=== PATIENT | female | born 1970 | race Caucasian/White ===

== ENCOUNTER 2018-05-22 12:24 | Emergency (ER) | payer MEDICARE, SELFPAY ==
[2018-05-22 12:25] VITALS: BP 145/88; PULSE 93; RESP 16; TEMP 36.4; O2SAT 100; BMI 31.8
--- NOTE | 2018-05-22 12:44 | ED.DCSUM_ITS ---
- ER Visit Summary Date of Service: 05/22/18 Chief Complaint: Back pain [] History of Present Illness: The patient is a 47 F [presents the emergency department with complaint of back pain that has been chronic for years however exacerbated over the last 2-3 days. Patient states that she used to live in the area and then moved down in [place] but is now moving back this weekend. Patient believes that from all the driving around and sitting in the car it has exacerbated her chronic back pain. Patient denies any trauma. Patient denies urinary symptoms. Patient denies fever or IV drug use. Patient used to be in pain management with Dr. Chavis and would like to get back into see him. Patient was not seeing pain management in [facility]. Patient tells me this is the same pain she always has had there is nothing different about it. Patient denies any radiation down the legs or weakness in extremities. She denies any change in bowel or bladder function.] Physical Examination: [HEENT-PERRLA, EOMI. Cranial nerves II through XII grossly intact. TMs clear. Mucous membranes moist. No adenopathy. Cardiovascular-regular rate and rhythm without murmur or ectopy Lungs-clear to auscultation, chest wall stable without crepitus or subcu emphysema Abdomen-normoactive bowel sounds, soft, nontender, no rebound or rigidity, no peritoneal signs. Back exam-patient has diffuse tenderness over the lumbar spine and lumbar paraspinal musculature. There is no erythema or warmth. There is no crepitus. Patient has negative straight leg raises. Deep tendon reflexes are plus 2 out of 4 bilaterally at the patella and Achilles. Patient has normal L5 extension. Patient has normal sensation to light touch Extremities-intact ?4, normal range of motion, normal pulses, atraumatic] Test Results: [None indicated] Emergency Department Course and Treatment: Patient was given a dose of Dilaudid 1 mg IM as well as a fentanyl patch 25 mcg. I did perform an oars report which does not show any narcotic prescriptions in 2018 however she did have prescriptions in [address]avis[] Treatment Plan: Patient will be given a prescription for 12 [place] [] Disposition: [Discharged home in stable condition. Patient will be referred for follow-up with Dr. Chavis] Impression: [Acute exacerbation of chronic back pain] This note was generated with Dragon dictation software. It may contain incorrect words, spelling, and punctuation that were not noted in review of the chart prior to signing ED Disposition - Plan for ED Patient: Chief Complaint: Back Referrals: Martin Lisa [Primary Care Provider] -
--- NOTE | 2018-05-22 12:46 | DCINST.ED_ITS ---
ED Disposition - Plan for ED Patient: Chief Complaint: Back Instructions: ED Neck Back Pain General Prescriptions: Hydrocodone/Acetaminophen [[place] 5-325 Tablet] 1 - 2 ea PO 4X/DAY PRN PRN 3 Days #12 tab PRN Reason: Pain Cyclobenzaprine [Flexeril] 10 mg PO TID PRN #20 tab PRN Reason: Muscle Spasm Referrals: Martin Lisa [Primary Care Provider] - Ricki Chavis MD [STAFF PHYSICIAN] - 3-5 Days
[2018-05-22] MEDS: HYDROmorphone 1 MG/ML Syringe IM (12:51)
[2018-05-22 12:59] VITALS: BP 130/76; PULSE 71; RESP 14; O2SAT 99
[2018-05-22] MEDS: fentaNYL 25 MCG Patch TRANSDERM. (13:13)
== END 2018-05-22 13:23 | disposition home or self-care (01) ==
PROVIDERS: Emergency Provider Emergency Medicine
DX: M54.9 Dorsalgia, unspecified (principal); G89.29 Other chronic pain; M06.9 Rheumatoid arthritis, unspecified; Z90.710 Acquired absence of both cervix and uterus; Z72.0 Tobacco use
CPT/HCPCS: 96372; 99283

== ENCOUNTER 2018-05-29 17:11 | Emergency (ER) | payer MEDICARE, SELFPAY ==
[2018-05-29 17:12] VITALS: BP 123/83; PULSE 99; RESP 18; TEMP 36.4; O2SAT 99; BMI 31.8
--- NOTE | 2018-05-29 17:17 | ED.RN ---
PT WAS GIVEN NORCO,FLEXERIL PRESCRIPTIONS AND A FENTYNL PATCH IN ED AND PAIN SHOT
--- NOTE | 2018-05-29 18:09 | ED.VISSUMM ---
- ER Visit Summary Date of Service: 05/29/18 Chief Complaint: Back pain History of Present Illness: The patient is a 47 F presents to the emergency department exacerbation of chronic back pain. The patient was in pain management. She recently moved to [place] a few years ago and then moved back. She apparently had a no-show with Dr. Chavis and was unable to get back in the pain management. Since then, she states that she was buying pain pills off the street. She states this is how she managed her pain. Since moving back, she wants to get back into pain management. She is actually scheduled to see a new primary care physician tomorrow. She was seen here a few days ago for an exacerbation of pain. She was given a prescription for analgesics and was discharged. She states that her pain has come back and she is out of pain medication. She states there is nothing new about her pain. She denies any problems of bowel or bladder. She denies any weakness of her legs. She denies any change in gait or trauma. Physical Examination: Afebrile, vitals unremarkable. Well-appearing female no acute distress. Head is normocephalic, atraumatic. Pupil's equal round reactive, extraocular muscles intact. Neck supple. Heart regular rate and rhythm. Lungs clear, chest nontender. Abdomen soft, nontender, nondistended. No pulsatile mass. Patient has paraspinal tenderness in the lumbar area, but no bony tenderness. Straight leg raise is negative bilaterally. 2+ symmetric lower extremity pulses. 2+ reflexes. No clonus. No weakness of dorsiflexion, plantar flexion, or extensor hallucis longus bilaterally. Test Results: [] Emergency Department Course and Treatment: The patient has a normal neurologic exam. Her pulses are normal. Her reflexes are normal. She has no midline tenderness. The patient will be given IM medications and I did employment counselor her that we could not fill her chronic pain medications. The patient does have follow-up in place tomorrow. She will be discharged and will keep this. Treatment Plan: [] Disposition: Discharge Impression: Exacerbation of chronic back pain This note was generated with [employer] dictation software. It may contain incorrect words, spelling, and punctuation that were not noted in review of the chart prior to signing ED Disposition - Plan for ED Patient: Chief Complaint: Back Instructions: ED Spasm Back No Trauma Referrals: Care Physician,No Primary [Primary Care Provider] -
--- NOTE | 2018-05-29 18:12 | ED.DCSUM_ITS ---
- ER Visit Summary Date of Service: 05/29/18 Chief Complaint: Back pain History of Present Illness: The patient is a 47 F presents to the emergency department exacerbation of chronic back pain. The patient was in pain management. She recently moved to [place] a few years ago and then moved back. She apparently had a no-show with Dr. Chavis and was unable to get back in the pain management. Since then, she states that she was buying pain pills off the street. She states this is how she managed her pain. Since moving back , she wants to get back into pain management. She is actually scheduled to see a new primary care physician tomorrow. She was seen here a few days ago for an exacerbation of pain. She was given a prescription for analgesics and was discharged. She states that her pain has come back and she is out of pain medication. She states there is nothing new about her pain. She denies any problems of bowel or bladder. She denies any weakness of her legs. She denies any change in gait or trauma. Physical Examination: Afebrile, vitals unremarkable. Well-appearing female no acute distress. Head is normocephalic, atraumatic. Pupil's equal round reactive, extraocular muscles intact. Neck supple. Heart regular rate and rhythm. Lungs clear, chest nontender. Abdomen soft, nontender, nondistended. No pulsatile mass. Patient has paraspinal tenderness in the lumbar area, but no bony tenderness. Straight leg raise is negative bilaterally. 2+ symmetric lower extremity pulses. 2+ reflexes. No clonus. No weakness of dorsiflexion, plantar flexion, or extensor hallucis longus bilaterally. Test Results: [] Emergency Department Course and Treatment: The patient has a normal neurologic exam. Her pulses are normal. Her reflexes are normal. She has no midline tenderness. The patient will be given IM medications and I did recreation counselor her that we could not fill her chronic pain medications. The patient does have follow-up in place tomorrow. She will be discharged and will keep this. Treatment Plan: [] Disposition: Discharge Impression: Exacerbation of chronic back pain This note was generated with [employer] dictation software. It may contain incorrect words, spelling, and punctuation that were not noted in review of the chart prior to signing ED Disposition - Plan for ED Patient: Chief Complaint: Back Instructions: ED Spasm Back No Trauma Referrals: Care Physician,No Primary [Primary Care Provider] -
[2018-05-29] MEDS: Ketorolac 60 MG/2 ML Vial IM (18:31)
[2018-05-29] MEDS: Morphine 4 MG/ML Syringe 8 MG IM (18:32)
[2018-05-29] MEDS: Orphenadrine 60 MG/2 ML Ampul IM (18:32)
[2018-05-29 19:20] VITALS: PULSE 97; RESP 18; O2SAT 98
== END 2018-05-29 19:22 | disposition home or self-care (01) ==
LOC: ED 18:25
PROVIDERS: Emergency Provider Emergency Medicine; Family Provider Family Medicine; PCP Family Medicine
DX: M54.5 Low back pain (principal); G89.29 Other chronic pain
CPT/HCPCS: 96372; 99282